=== PATIENT | female | born 2000 | race Caucasian/White ===

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

== ENCOUNTER 2020-04-19 19:06 | Emergency (ER) | payer SELFPAY ==
[~2020-04-19] VITALS: Ht 170.2 cm; Wt 77.2 kg
[2020-04-19 19:26] VITALS: BP 112/56
--- NOTE | 2020-04-19 19:48 | PHYS DOC ---
Past Medical History Past Medical History: No Pertinent History Past Surgical History: No Surgical History Smoking Status: Current Every Day Smoker Alcohol Use: None General Adult EDM: Chief Complaint: LACERATION/AVULSION HPI: HPI: 19-year-old female who denies any significant past medical history presents to the ED with complaints of actually cutting her right dominant thumb over her MCP with a piece of glass while doing dishes. States glass broke while she was holding it. Reports her tetanus is up-to-date. Review of systems: No associated fever, chills, cough, dyspnea, nausea, vomiting, syncope, chest pain, sore throat or hemoptysis. Allergies: Allergies: Allergies Coded Allergies Type Severity Reaction Last Updated Verified aripiprazole Allergy Mild 06/03/19 Yes lamotrigine Allergy Unknown 06/03/19 Yes Physical Exam: PE: Constitutional: Well developed, well nourished, no acute distress, non-toxic appearance. [] HENT: Normocephalic, atraumatic, bilateral external ears normal, oropharynx moist, no oral exudates, nose normal. [] Eyes: EOMI, conjunctiva normal, no discharge. [] Neck: Normal range of motion, no tenderness, supple, no stridor. [] Cardiovascular:Heart rate regular rhythm, no murmur [] Lungs & Thorax: Bilateral breath sounds clear to auscultation [] Abdomen: Bowel sounds normal, soft, no tenderness, no masses, no pulsatile masses. [] Skin: Warm, dry, no erythema, no rash. [] Back: No tenderness, no CVA tenderness. [] Extremities: No tenderness, no cyanosis, no clubbing, ROM intact, no edema. 1.5 cm over left mcp, subcutaneous tissue exposed Neurologic: Alert and oriented X 3, normal motor function, normal sensory f unction, no focal deficits noted. [] Psychologic: Affect normal, judgement normal, mood normal. [] Current Patient Data: Vital Signs: Vital Signs Date Time Temp Pulse Resp B/P (MAP) Pulse Ox O2 Delivery O2 Flow Rate FiO2 04/19/20 19:26 99.0 79 18 112/56 (74) 96 Room Air 99.0 EKG: EKG: [] Radiology/Procedures: Radiology/Procedures: Indication: Right thumb laceration over MCP joint Procedure: The patient was placed in the appropriate position and anesthesia around the right thumb with 1% lidocaine. The area was then copiously irrigated with normal saline, no foreign bodies identified. The laceration was closed with 4-0 Prolene, #3 sutures. [ADDITIONAL LACS] The wound area was then dressed with [WOUND COVERING]. Total repaired wound length: 1.5 cm Other Items: [OTHER ITEMS] The patient tolerated the procedure [TOLERATED]. Complications: [COMPLICATIONS].[] Impression: Concern for right thumb laceration status post simple repair. Wound care instructions given. Strict ED return precautions given for fever, chills or or inability to move her left thumb. Suture removal in 7 days. All patient's questions were answered and she was stable at time of discharge. Course & Med Decision Making: Course & Med Decision Making Pertinent Labs and Imaging studies reviewed. (See chart for details) [] Dragon Disclaimer: Dragon Disclaimer: This electronic medical record was generated, in whole or in part, using a voice recognition dictation system. Departure Departure Impression: Primary Impression: Laceration of thumb without complication Additional Impression: Laceration of thumb, right Disposition: 01 HOME, SELF-CARE Condition: STABLE Referrals: JUAN M MORALES MD (PCP) Dr. Jerrod Noble Address: [address] [place], [place] [id number] Patient Instructions: Laceration Care, Adult Additional Instructions: SUTURE REMOVAL IN 5-7 DAYS EMERGENCY DEPARTMENT GENERAL DISCHARGE INSTRUCTIONS Thank you for coming to [facility] Emergency Department (ED) today and trusting us with you care. We trust that you had a positivie experience in our Emergency Department. If you wish to speak to the department management, you may call the sirector at [phone]. YOUR FOLLOW UP INSTRUCTIONS ARE FOLLOWS: 1. Do you have a private Doctor? If you do not have a private doctir, please ask for a resource list of physicians or clinics that may be able to assist you with follow up care. 2. The Emergency Physicain has interpreted your x-rays. The X-Ray specialist will also review them. If there is a change in the findingd, you will be notified in 48 hours when at all possible. 3. A lab test or culture has been done, your results will be reviewed and you will be notified if you need a change in treatment. ADDITIONAL INSTRUCTIONS AND INFORMATION: 1. Your care today has been supervised by a physician who is specially trained in emergency care. Many problems require more than one evaluation for a complete diagnosis and treatment. We recommend that you schedule your follow up appointment as recommended to ensure complete treatment of you illness or injury. If you are unable to obtain follow up care and continue to have a problem, or if your consition worsens, we recommend that you return to the ED. 2. We are not able to safelymdetermine your condition over the phone nor are we able to give sound medical advice over the phone. For these safety reasons, if you call for medical advice we will ask you to come to the ED for further evaluation. 3. If you have any questions regarding these discharge instructions please call the ED at [phone]. SAFETY INFORMATION: In the interest of safety, wellness, and injury prevention; we encourage you to wear your sealbelt, if you smoke; quite smoking, and we encourage family to use a protective helmet for bicycling and other sporting events that present an increased risk for head injusry. IF YOUR SYMPTOMS WORSEN OR NEW SYMPTOMS DEVELOP, OR YOU HAVE CONCERNS ABOUT YOUR CONDITION; OR IF YOUR CONDITION WORSENS WHILE YOU ARE WAITING FOR YOUR FOLLOW UP APPOINTMENT; EITHER CONTACT YOUR PRIMARY CARE DOCTOR, THE PHYSICIAN WHOSE NAME AND NUMBER YOU WERE GIVEN, OR RETURN TO THE ED IMMEDIATELY. Justicifation of Admission Dx: Justifications for Admission: Justification of Admission Dx: N/A FATEMEH PERRY DO Apr 19, 2020 19:48
[2020-04-19] MEDS ORDERED: LIDOCAINE 1% PF 2 ML VIAL. INJ ONE (20:00)
[2020-04-19] MEDS ORDERED: NEOMY/BACITR/POLYMYXIN OINT PACKET. TP ONE (20:00)
[2020-04-19] MEDS ORDERED: LIDOCAINE 1% PF 2 ML VIAL. ONE (20:09)
--- NOTE | 2020-04-19 21:31 | RAD ---
Exam: Right finger 3 views INDICATION: Trauma TECHNIQUE: Frontal view of the right hand with oblique and lateral views of the right common Comparisons: None FINDINGS: Bone mineralization is normal. No acute or healed fractures. Soft tissues are unremarkable. Joint spaces are well-maintained. IMPRESSION: No acute osseous abnormality. Electronically signed by: Shanae Vang MD (04/19/2020 9:28 PM) [id number]
== END 2020-04-19 21:08 | disposition home or self-care (01) ==
LOC: ER 19:06
DX: S61.011A Laceration without foreign body of right thumb without damage to nail, initial encounter (principal); F17.200 Nicotine dependence, unspecified, uncomplicated; Z88.8 Allergy status to other drugs, medicaments and biological substances; W25.XXXA Contact with sharp glass, initial encounter; Y93.89 Activity, other specified; Y92.89 Other specified places as the place of occurrence of the external cause; Y99.8 Other external cause status
CPT/HCPCS: 12001; 73140; 99283; J3490